=== PATIENT | female | born 2005 ===

== ENCOUNTER 2025-08-15 14:50 | Outpatient (AMB) | payer OTHER, SELFPAY ==
--- NOTE | 2025-08-15 14:51 | A.OFFVIS_ITS ---
Vital Signs 3 08/15/25 14:52 Height 4 ft 11 in Weight 131 lb 6.328 oz BMI 26.5 BP 94/64 Blood Pressure Location Rt brachial Position Sitting Pulse 91 Pulse Source Pulse Oximeter Pulse Oximetry (%) 99 Oxygen Delivery Method Room Air Intake Visit Reasons: Elevated DHEA Intake Note: Patient present today for elevated DHEA. Multiple Spindle Router Operator Required: Yes Multiple Spindle Router Operator Services: Multiple Spindle Router Operator Present Multiple Spindle Router Operator Name: [id number] Shahrzad Accompanied by: Self / Same As Patient Allergies No Known Allergies Allergy (Verified 08/15/25 14:55) Medication List - Last Reconciled 08/15/25 by Nanda Mcgee MD No Known Home Meds HPI Comments Details: 19-year-old female coming in today for initial evaluation of elevated DHEA levels. Labs done at [facility] reviewed 05/20/2025 which showed normal TSH, total T4, DHEA and 1355 ng/dL (31-701), normal total testosterone of 35 ng/dL (13-71), normal FSH, LH, prolactin, estradiol levels. Patient was complaining of irregular periods with skipping periods also complaints of hirsutism? but only on vagina and armpits. Denies on face, abd, aereola No acne , reports hair loss diffusely No voice changes , no frontal balding , no clitoromegaly denies any supplement use She denies history of HTN, hyperlipidemia, prediabetes. PCOS is described as mild, moderate or severe. Menarche:12 years LMP:07/15/25, before that 05/14/25, before 03/29/25, has been skipping a month in between since always history: currently sexually active with , was on OCPs a few months up until Jan 2024 Currently not in interested in Exercise: none Weight Trend: gained 5 lbs in the past few months but mostly stable around 130 lbs Medical therapies: OCP,but for the purpose of control in the past Cosmetic therapies: shaves off vaginal hair, armpits Physical exam General: sitting comfortably in no acute distress HEENT: normocephalic/atraumatic, Neck: supple, Cardiac: normal heart sounds Pulm: normal breath sounds B/L, no added breath sounds Abd: not distended, no tenderness [facility] Medical History (Updated 08/15/25 @ 15:19 by Nanda Mcgee MD) Elevated dehydroepiandrosterone (DHEA) level Family History (Updated 08/15/25 @ 14:57 by RAFAEL Cali) Mother No problems noted. Father Hypertension Social History (Updated 08/15/25 @ 14:58 by RAFAEL Cali) Alcohol intake: current Alcohol intake frequency: holidays/special occasions only Patient Tobacco Use Status: Current someday Tobacco user Physical Exam Vital Signs: Last Vital Signs Pulse 91 08/15/25 14:52 BP 94/64 08/15/25 14:52 Pulse Ox 99 08/15/25 14:52 Oxygen Delivery Method Room Air 08/15/25 14:52 BMI result Body Mass Index 26.5 Assessment & Plan Assessment & Plan (1) Elevated dehydroepiandrosterone (DHEA) level: Code(s): R79.89 - Other specified abnormal findings of blood chemistry Category: Medical Plan: 19-year-old female coming in today for initial evaluation of elevated DHEA level. Labs done at [facility] reviewed 05/20/2025 which showed normal TSH, total T4, DHEA and 1355 ng/dL (31-701), normal total testosterone of 35 ng/dL (13-71), normal FSH, LH, prolactin, estradiol levels. She was complaining of excessive growth of hair in the vaginal area and armpits and irregular periods which is why the workup was done. She does not actually have hirsutism because she does not have any dark terminal hair in other areas, I explained to her that based on different ethnicity he is women can have faster slower hair growth but hers is limited to areas per we do expect women to have hair growth. She might have underlying PCOS resulting i irregular menstruation. At this time I would like to repeat blood work with testosterone and DHEA-S levels. Her DHEA level is mildly elevated, usually when it is higher than 700 mcg/dL, we would start getting concerned about possible adrenal tumor. At this time she does not have an features of virilization, and her PCOS seems mild given no hirsutism, and dermis shows out the as prolonged but she gets a period every other month. We will also check 17 hydroxyprogesterone to rule out nonclassic CAH. We will obtain pelvic ultrasound. Plan: -ordered cortisol, acth, DHEA-S, testosterone, 17 hydroxyprogesterone levels -ordered transvaginal us ultrasound pelvis -follow up in 8 weeks to discuss with Plan I spent 45 minutes in reviewing the record, seeing the patient and documenting in the medical record. Orders: Orders 2 Testosterone, Free/Total Today L68.0 - Hirsutism, R79.89 - Other specified abnormal findings of blood chemistry DHEA Sulfate Today R79.89 - Other specified abnormal findings of blood chemistry Cortisol Random Today R79.89 - Other specified abnormal findings of blood chemistry 17 Hydroxyprogesterone Today L68.0 - Hirsutism, R79.89 - Other specified abnormal findings of blood chemistry US pelvic and transvaginal Today L68.0 - Hirsutism, R79.89 - Other specified abnormal findings of blood chemistry Adrenocorticotropic Hormone Today R79.89 - Other specified abnormal findings of blood chemistry Patient Instructions: DO broomcorn seeder 8 AM blood work Do ultrasound pelvis, someone will call you to schedule Follow up in October to discuss results Coding Level of Care Code New Pt Level 4 (39764) Diagnoses Elevated dehydroepiandrosterone (DHEA) level R79.89 Time Spent (min) 45
[2025-08-15 14:52] VITALS: BP 94/64; PULSE 91; O2SAT 99; BMI 26.5
== END 2025-08-15 15:24 | disposition home or self-care (01) ==
LOC: HO.ENCR 14:51
PROVIDERS: Visit Provider Student in an Organized Health Care Education/Training Program
DX: R79.89 Other specified abnormal findings of blood chemistry (principal)
CPT/HCPCS: 99204

== ENCOUNTER → 2025-08-15 14:50 | Outpatient (BNVA) | payer OTHER, SELFPAY | PROVIDERS: Visit Provider Student in an Organized Health Care Education/Training Program | DX: Z71.2 Person consulting for explanation of examination or test findings (principal); R79.89 Other specified abnormal findings of blood chemistry | CPT/HCPCS: 99202 ==

== ENCOUNTER 2025-09-23 13:38 | Outpatient (REF) | payer OTHER, SELFPAY ==
--- NOTE | ~2025-09-23 | US_ITS ---
EXAMINATION: US PELVIS TRANSABDOMINAL AND TRANSVAGINAL HISTORY: L68.0 - Hirsutism COMPARISON: There are no prior studies available for comparison. TECHNIQUE: Transabdominal and endovaginal real-time 2D krishna-scale ultrasound was performed. FINDINGS: Uterus: The uterus is normal in size, measuring 6.9 x 3.1 x 4.3 cm. Myometrium has a normal echotexture. No fibroids are identified. Endometrium: The endometrial stripe measures 13 mm in thickness. Right ovary: The right ovary measures 3.1 x 1.7 x 2.0 cm. The right ovary is normal in size and echotexture. Left ovary: The left ovary measures 2.7 x 1.7 x 1.2 cm. The left ovary is normal in size and echotexture. Pelvic fluid: none. US/US pelvic and transvaginal IMPRESSION: Unremarkable pelvic ultrasound. Electronically signed by: Aly Rapp MD 09/23/2025 02:35 PM EDT
== END 2025-09-23 13:39 | disposition home or self-care (01) ==
LOC: HO.US 13:38
PROVIDERS: Visit Provider Student in an Organized Health Care Education/Training Program
DX: L68.0 Hirsutism (principal); R79.89 Other specified abnormal findings of blood chemistry
CPT/HCPCS: 76830; 76856

== ENCOUNTER → 2025-09-23 13:40 | Outpatient (BNV) | payer OTHER, SELFPAY | PROVIDERS: Visit Provider Radiology Diagnostic Radiology | DX: N92.5 Other specified irregular menstruation (principal) | CPT/HCPCS: 76830; 76856 ==

== ENCOUNTER 2025-10-19 16:29 | Outpatient (AMB) | payer OTHER, SELFPAY ==
[2025-10-19 16:30] VITALS: BP 124/66; PULSE 78; O2SAT 98; BMI 25.8
--- NOTE | 2025-10-19 16:30 | MHC.OFFVIS ---
Vital Signs 10/19/25 16:30 Height 4 ft 11 in Weight 127 lb 13.89 oz BMI 25.8 BP 124/66 Blood Pressure Location Rt brachial Position Sitting Pulse 78 Pulse Source Pulse Oximeter Pulse Oximetry (%) 98 Oxygen Delivery Method Room Air Intake Visit Reasons: Elevated DHEA Intake Note: New Patient presents here today to establish care for Elevated DHEA: Weed Science Research Technician Required: Yes Weed Science Research Technician Language: Stars Specialist Services: Weed Science Research Technician Present Weed Science Research Technician Name: Phyllis Vilchis, RAFAEL/EPIFANIO MARAVILLA Information Interpreted: non-clinical & clinical Accompanied by: Self / Same As Patient Allergies No Known Allergies Allergy (Verified 10/19/25 16:31) Medication List - Last Reconciled 10/19/25 by Aly Perez MD No Known Home Meds HPI Comments Details: 19-year-old female coming in today for initial evaluation of elevated DHEA levels. Patient last saw Dr. Mcgee on 08/15/2025 Patient was complaining of irregular periods with skipping periods also complaints of hirsutism? but only on vagina and armpits. Denies on face, abd, aereola No acne , reports hair loss diffusely No voice changes , no frontal balding , no clitoromegaly denies any supplement use She denies history of HTN, hyperlipidemia, prediabetes. PCOS is described as mild, moderate or severe. Menarche:12 years LMP:07/15/25, before that 05/14/25, before 03/29/25, has been skipping a month in between since always history: currently sexually active with , was on OCPs a few months up until Jan 2024 Currently not in interested in Exercise: none Weight Trend: gained 5 lbs in the past few months but mostly stable around 130 lbs Medical therapies: OCP,but for the purpose of control in the past Cosmetic therapies: shaves off vaginal hair, armpits Physical exam General: sitting comfortably in no acute distress HEENT: normocephalic/atraumatic, Neck: supple, Cardiac: normal heart sounds Pulm: normal breath sounds B/L, no added breath sounds Abd: not distended, no tenderness Repeat DHEA-S level was 480 with normal 17 hydroxy progesterone. Patient also had a normal transvaginal ultrasound.Missed one month of menses . No hair growth on face [facility] Medical History (Updated 08/15/25 @ 15:19 by Nanda Mcgee MD) Elevated dehydroepiandrosterone (DHEA) level Surgical History (Updated 10/19/25 @ 16:32 by RAFAEL Chery) No pertinent past surgical history Family History (Updated 08/15/25 @ 14:57 by RAFAEL Cali) Mother No problems noted. Father Hypertension Social History (Updated 08/15/25 @ 14:58 by RAFAEL Cali) Alcohol intake: current Alcohol intake frequency: holidays/special occasions only Patient Tobacco Use Status: Current someday Tobacco user Physical Exam Vital Signs: Oxygen Delivery Method Room Air 10/19/25 16:30 Assessment & Plan Assessment & Plan (1) Elevated dehydroepiandrosterone (DHEA) level: Code(s): R79.89 - Other specified abnormal findings of blood chemistry Category: Medical Plan: 19-year-old female with a history of hyperandrogenemia with elevated DHEA-S consistent with polycystic ovarian syndrome. Plan is to have pt f/u with Dr. Mcgee on her return in 01/2026 . Consideration could be given to initation of BCP or referral to Faculty Head for initation. Coding Level of Care Code Est Pt Level 3 (68831) Diagnoses Elevated dehydroepiandrosterone (DHEA) level R79.89
== END 2025-10-19 16:46 | disposition home or self-care (01) ==
LOC: HO.ENCR 16:29
PROVIDERS: Visit Provider Internal Medicine Endocrinology, Diabetes & Metabolism
DX: R79.89 Other specified abnormal findings of blood chemistry (principal)
CPT/HCPCS: 99213

== ENCOUNTER → 2025-10-19 16:29 | Outpatient (BNVA) | payer OTHER, SELFPAY | PROVIDERS: Visit Provider Internal Medicine Endocrinology, Diabetes & Metabolism | DX: R79.89 Other specified abnormal findings of blood chemistry (principal) | CPT/HCPCS: 99212 ==